=== PATIENT | male | born 1995 | race Native Hawaiian/Other Pacific Islander ===

== ENCOUNTER 2018-08-23 00:31 | Outpatient (CLI) | payer OTHER ==
[2018-08-23] MEDS ORDERED: SEROQUEL100 MG PO (01:04)
== END 2018-08-23 00:48 | disposition short-term general hospital (02) ==
LOC: AMB 00:31
DX: S61.412A Laceration without foreign body of left hand, initial encounter (principal); W26.8XXA Contact with other sharp object(s), not elsewhere classified, initial encounter
CPT/HCPCS: A0425; A0429

== ENCOUNTER 2018-08-23 00:52 | Emergency (ER) | payer OTHER ==
[~2018-08-23] VITALS: Ht 182.9 cm; Wt 113.4 kg
[2018-08-23 00:52] VITALS: TEMP 97.5
[2018-08-23] MEDS ORDERED: SEROQUEL100 MG PO (01:04)
[2018-08-23 02:20] VITALS: BP 120/72
== END 2018-08-23 02:20 | disposition short-term general hospital (02) ==
LOC: ED 00:52
DX: S61.217A Laceration without foreign body of left little finger without damage to nail, initial encounter (principal); S66.127A Laceration of flexor muscle, fascia and tendon of left little finger at wrist and hand level, initial encounter; W26.8XXA Contact with other sharp object(s), not elsewhere classified, initial encounter
CPT/HCPCS: 90715; 99285

== ENCOUNTER 2019-11-25 11:49 | Outpatient (CLI) | payer OTHER ==
[~2019-11-25 11:49] MED LIST: SEROQUEL100 MG PO
[2019-11-25] MEDS ORDERED: CITALOPRAM40 M1 PO (12:07)
[2019-11-25] MEDS ORDERED: OLANZAPINE20 M1 PO (12:08)
== END 2019-11-25 11:51 | disposition short-term general hospital (02) ==
LOC: AMB 11:49
DX: R41.82 Altered mental status, unspecified (principal); F15.10 Other stimulant abuse, uncomplicated
CPT/HCPCS: A0425; A0429

== ENCOUNTER 2019-11-25 11:52 | Emergency (ER) | payer OTHER ==
[~2019-11-25] VITALS: Ht 182.9 cm; Wt 136.1 kg
[2019-11-25 11:52] VITALS: TEMP 97.9
[2019-11-25] MEDS ORDERED: CITALOPRAM40 M1 PO (12:07)
[2019-11-25] MEDS ORDERED: OLANZAPINE20 M1 PO (12:08)
[2019-11-25 12:40] LABS: PLATELET COUNT 318 K/uL (142-355)
[2019-11-25 12:46] LABS: POTASSIUM 3.6 mmol/L (3.6-5.2); SODIUM 138 mmol/L (136-145)
[2019-11-25 12:51] LABS: PARTIAL THROMBOPLASTIN TIME 24.7 SECONDS (24.5-33.6)
[2019-11-25 13:00] VITALS: BP 168/94
== END 2019-11-25 13:30 ==
LOC: ED 11:52
PROVIDERS: Hospitalist
DX: F25.9 Schizoaffective disorder, unspecified (principal); F15.10 Other stimulant abuse, uncomplicated; R00.0 Tachycardia, unspecified
CPT/HCPCS: 80053; 80320; 82550; 82553; 83880; 84484; 85027; 85610; 85730; 93005; 96360; 99284